=== PATIENT | female | born 1995 | race Caucasian/White ===

== ENCOUNTER 2017-05-19 08:30 | Outpatient (CLI) | payer BC ==
[2017-05-19 13:17] LABS: HCT - HEMATOCRIT 40.9 % (37.0-47.0); HGB - HEMOGLOBIN 13.9 g/dL (12.0-16.0); MEAN CORPUSCULAR HEMOGLOBIN 28.3 pg (27.0-31.0); MEAN CORPUSCULAR HGB CONC 34.1 g/dL (32.0-36.0); MEAN PLATELET VOLUME 8.6 fL (7.9-10.8); RED BLOOD COUNT 4.93 10^6/uL (4.20-5.40); RED CELL DISTRIBUTION WIDTH 13.5 % (12.0-15.0); WHITE BLOOD COUNT 6.6 x10^3/uL (4.8-10.8)
[2017-05-19 13:31] LABS: PARTIAL THROMBOPLASTIN TIME 28.7 secs (24.9-33.3)
[2017-05-19 13:38] LABS: INR 1.1 (0.8-1.2); PT - PROTHROMBIN TIME 12.4 secs (9.9-12.6)
== END 2017-05-19 08:31 | disposition home or self-care (01) ==
LOC: LAB.WCP 08:30
PROVIDERS: ATTEND Family Medicine
DX: R23.2 Flushing (principal)
CPT/HCPCS: 36415; 84703; 85610; 85730

== ENCOUNTER 2017-06-25 19:50 | Emergency (ER) | payer OTHER, BC ==
[2017-06-25 20:33] VITALS: BP 112/75
--- NOTE | 2017-06-25 21:50 | ED Physician Documentation ---
PD HPI UPPER EXT INJURY - Stated complaint Stated Complaint: LEFT HAND INJ - Chief complaint Chief Complaint: Needlestick - History obtained from History obtained from: Patient - History of Present Illness Location: Left, Hand Type of injury: Puncture wound Where injury occurred: Work Timing - onset: How many hours ago (6) Timing - details: Abrupt onset Associated symptoms: No: Weakness, Numbness, Tingling, Swelling, Discolored Contributing factors: Work related. No: Anticoagulated, Prosthetic joint Similar symptoms before: Has not had sx before Recently seen: Not recently seen - Additonal information Additional information: Patient is a 21 year old female with no significant past medical history who is presenting to the emergency department for needlestick injury. Patient works in a dental office and poked herself with a closed needle while working in the patient's mouth. patient had no documented history of any transmissible diseases but did have a history of drug use. Review of Systems Constitutional: denies: Fever, Chills Eyes: denies: Decreased vision Ears: denies: Ear pain Nose: denies: Rhinorrhea / runny nose, Congestion Throat: denies: Sore throat Cardiac: denies: Chest pain / pressure, Palpitations, Calf pain Respiratory: denies: Cough, Wheezing GI: denies: Abdominal Pain, Nausea, Vomiting : denies: Dysuria, Frequency, Hesitancy Skin: denies: Rash, Lesions, Laceration (s) Musculoskeletal: reports: Extremity pain Neurologic: denies: Generalized weakness, Focal weakness, Numbness Psychiatric: denies: Depressed, Anxiety Immunocompromised: denies: Immunocompromised PD PAST MEDICAL HISTORY - Past Medical History Past Medical History: No Cardiovascular: None Respiratory: None Neuro: None Endocrine/Autoimmune: None GI: None : Other HEENT: None Psych: Anxiety, Bipolar disorder Musculoskeletal: Chronic back pain Derm: None, Eczema - Past Surgical History HEENT: Other - Present Medications Home Medications: Ambulatory Orders Medication Instructions Recorded Confirmed No Known Home Medications [No 06/25/17 06/25/17 Known Home Medications] - Allergies Allergies/Adverse Reactions: Allergies Allergy/AdvReac Type Severity Reaction Status Date / Time lamotrigine [From Lamictal] Allergy Hives Verified 06/25/17 20:33 metronidazole [From Flagyl] Allergy Hives Verified 06/25/17 20:33 Penicillins Allergy Hives Verified 06/25/17 20:33 - Social History Does the pt smoke?: Yes Smoking Status: Current every day smoker Does the pt drink ETOH?: Yes Does the pt have substance abuse?: No - Immunizations Immunizations are current?: Yes PD ED PE NORMAL - Vitals Vital signs reviewed: Yes - General General: Alert and oriented X 3, No acute distress - HEENT HEENT: Atraumatic, PERRL - Neck Neck: Supple, no meningeal sign - Cardiac Cardiac: RRR, No murmur - Respiratory Respiratory: No respiratory distress, Clear bilaterally - Abdomen Abdomen: Soft, Non tender, Non distended - Derm Derm: Normal color, Warm and dry, No rash - Extremities Extremities: No deformity, No tenderness to palpate, Other (no injury appreciated) - Neuro Neuro: Alert and oriented X 3, financial controller 2-12 intact, No motor deficit, No sensory deficit, Normal speech - Psych Psych: Normal mood, Normal affect Results - Vitals Vitals: Vital Signs - 24 hr 06/25/17 20:30 Temperature 36.6 C Heart Rate 68 Respiratory 16 Rate Blood Pressure 112/75 O2 Saturation 97 Oxygen O2 Source Room air PD MEDICAL DECISION MAKING - ED course Complexity details: reviewed old records, considered differential, d/w patient ED course: Patient was seen and examined at bedside. patient's blood was drawn. patient was not a candidate for PEP. Patient was given detailed discharge and follow up instructions. patient was stable for discharge with outpatient follow up. Departure - Departure Disposition: Home, Self Care Clinical Impression: Needlestick injury of finger of left hand Condition: Good Instructions: [place] Other [place] Precautions Follow-Up: Tanesha Chappell DO [Primary Care Provider] - Comments: Your chances of acquiring HIV or other transmissible disease is very unlikely. the lab results should be back by wednesday. You can call medical records to get your results. You will still need to follow up with your pmd for follow up blood testing. You may return to the emergency department at any time for new, worsening or uncontrollable symptoms.
== END 2017-06-25 21:54 | disposition home or self-care (01) ==
LOC: ED 19:50
DX: Z77.21 Contact with and (suspected) exposure to potentially hazardous body fluids (principal); F17.200 Nicotine dependence, unspecified, uncomplicated
CPT/HCPCS: 1040M; 87389; 99282

== ENCOUNTER 2017-09-22 15:30 | Outpatient (CLI) | payer BC | END 2017-09-22 15:31 | LOC: LAB.WCP 15:30 | PROVIDERS: ATTEND Family Medicine | DX: Z72.89 Other problems related to lifestyle (principal) | CPT/HCPCS: 87480; 87491; 87510; 87591; 87660 ==

== ENCOUNTER 2018-10-27 08:07 | Outpatient (CLI) | payer SELFPAY ==
[2018-10-27 14:10] LABS: THYROID STIMULATING HORMONE 1.44 uIU/mL (0.34-5.60)
[2018-10-27 14:38] LABS: FOLLICLE STIMULATING HORMONE 10.1 mIU/mL; LUTEINIZING HORMONE 14.16 mIU/mL
[2018-10-28 13:45] LABS: HIV AG/AB 4TH GEN NON-REACTIVE (NON-REACTIVE)
== END 2018-10-27 23:59 | disposition home or self-care (01) ==
LOC: LAB.WCP 08:07
PROVIDERS: ATTEND Family Medicine
DX: E28.2 Polycystic ovarian syndrome (principal); F41.9 Anxiety disorder, unspecified; Z71.89 Other specified counseling
CPT/HCPCS: 36415; 81599; 83001; 83002; 84443; 84702; 86592; 87389